=== PATIENT | male | born 1965 | race Hispanic/Latino ===

== ENCOUNTER 2024-11-09 16:58 | Emergency (ER) | payer BC, SELFPAY ==
[2024-11-09 17:31] VITALS: BP 156/92
--- NOTE | 2024-11-09 17:40 | ED.GENMED ---
ED Provider Triage
<Megan Delatorre PA-C - Last Filed: 11/09/24 17:48>
-
Patient seen by provider in Triage?: Seen in Triage
59 y/o M with h/o htn
has seen cards with Dr. Pool previously. About 2 weeks ago he started having some palpitations that felt like a mix between racing heart rate and irregular heartbeat. He called Dr. Pool's office and they recommend try to set him up with a Holter
monitor and then see him in a few weeks. He has not had that done yet. Today he felt suddenly lightheaded with dizziness, nausea, like he might pass out and felt racing heart rate so he had been told to come in if he had felt symptomatic. Patient
says he feels better now but it is not resolved. He only drinks 1 small cup of coffee in the morning.
A medical screening examination has been initiated by a qualified medical provider. Based on the assessment performed at this time, it has been determined that an emergent medical condition may exist and the patient has been informed that further
medical evaluation and possible additional diagnostic testing may be needed.
HPI: This is a medical evaluation conducted in person to initiate diagnostic evaluation and provide initial therapeutics. Please see further documentation by the treating clinician.
GENERAL: Alert , in no apparent distress
ENT: No visible abnormalities
LUNGS: No acute respiratory distress
cv: Irregularly irregular, not fast
NEUROLOGICAL: Alert and oriented
SKIN: Skin intact. No visible changes.
MUSCULOSKELETAL: Moving extremities normally
PSYCH: Normal and appropriate interaction.
Patient with palpitations and near syncope today. His EKG shows frequent PVC but a normal rate, I appreciate his stable vital signs.s will send screening labs
History of Present Illness
<Megan Delatorre PA-C - Last Filed: 11/09/24 17:48>
General
Chief Complaint: Cardiac Symptoms
Time Seen by Provider: 11/09/24 18:55
<Lela Oro PA-C - Last Filed: 11/10/24 06:40>
General
Source: patient and spouse
Exam Limitations: none
History of Present Illness
History of Present Illness:
59yoM with a history of hypertension and hyperlipidemia presenting with his for evaluation after an episode of dizziness today. Patient was working in his garage today around 1 PM when he started to experience left-sided chest pressure. He
then started to feel flushed and became lightheaded and felt like he was about to pass out. He did not lose consciousness. Symptoms lasted for several hours before resolving. He is currently asymptomatic. also reports that he has had daily
left-sided chest pain over the past several weeks. Pain is very random without any specific pattern. He denies any exertional or pleuritic symptoms. He is also having intermittent palpitations x several weeks and is scheduled to shredder picker a Holter
monitor in 4 days. His team leader/research psychologist is Dr. Pool.
Past History
<Megan Delatorre PA-C - Last Filed: 11/09/24 17:48>
Past History
ED Past Medical History: None
ED Past Surgical History: Other
Social History
Tobacco: Non-smoker
Alcohol: None
Drug: None
Personal:
Living: with family
Employment: Employed
Family History
Family History: Other
Phy Exam
<Lela Oro PA-C - Last Filed: 11/10/24 06:40>
General Physical Exam
General Presentation: well appearing and no apparent distress
General age: appears stated age
General Skin: warm and dry
General Habitus: normal
General Mental: alert
ENT Exam
ENT Exam: normocephalic
Cardiovascular Exam
Cardiovascular Exam: no murmur and occasionally irregular
Pulmonary Exam
Pulmonary Exam: lungs clear, no respiratory distress, no rales, no crackles, no rhonchi and no wheezing
Neurological Exam
Neurological Exam: alert
[place] Coma Scale
Eye Opening: Spontaneous
Verbal Response: Oriented
Motor Response: Obeys Commands
GCS Total Score: 15
Skin Exam
Skin Exam: normal color and warm/dry
Psychiatric Exam
Psychiatric Exam: normal mood/affect
Course
<Megan Delatorre PA-C - Last Filed: 11/09/24 17:48>
Orders/Labs/Results
Orders:
Orders
11/09/24 16:59
Electrocardiogram (*1) Urgent
Reason for Study: Chest Pain
EKG- Treatment ONCE
11/09/24 17:48
CMP [Comprehensive Metabolic Panel] Urgent
Complete Blood Count/With Diff Urgent
Magnesium Urgent
Comment: ADD ON
TSH Reflex To Free T4 Urgent
Troponin I Urgent
11/09/24 19:10
Add On- LAB Urgent
Tests Added?: magnesium
EKG- Treatment ONCE
11/09/24 19:11
0.9% Sodium Chloride 500 ml [Nss] 500 ml IV BOLUS
11/09/24 20:00
Electrocardiogram (*1) Urgent
Reason for Study: Chest Pain
11/09/24 20:20
Troponin I Urgent
Abnormal Lab Results
11/09/24
17:48
Glucose 117 H mg/dl
(70-99)
11/09/24 17:48
11/09/24 17:48
Vital Signs
Initial and Last Documented VS:
Initial Vital Signs
Temp Pulse Resp BP Pulse Ox
98.3 F 69 18 156/92 98
11/09/24 17:31 11/09/24 17:31 11/09/24 17:31 11/09/24 17:31 11/09/24 17:31
Last Documented Vital Signs
Temp Pulse Resp BP Pulse Ox
98.3 F 53 18 149/90 100
11/09/24 19:26 11/09/24 21:14 11/09/24 21:14 11/09/24 21:14 11/09/24 21:14
<Lela Oro PA-C - Last Filed: 11/10/24 06:40>
Orders/Labs/Results
Orders:
Orders
11/09/24 16:59
Electrocardiogram (*1) Urgent
Reason for Study: Chest Pain
EKG- Treatment ONCE
11/09/24 17:48
CMP [Comprehensive Metabolic Panel] Urgent
Complete Blood Count/With Diff Urgent
Magnesium Urgent
Comment: ADD ON
TSH Reflex To Free T4 Urgent
Troponin I Urgent
11/09/24 19:10
Add On- LAB Urgent
Tests Added?: magnesium
EKG- Treatment ONCE
11/09/24 19:11
0.9% Sodium Chloride 500 ml [Nss] 500 ml IV BOLUS
11/09/24 20:00
Electrocardiogram (*1) Urgent
Reason for Study: Chest Pain
11/09/24 20:20
Troponin I Urgent
Abnormal Lab Results
11/09/24
17:48
Glucose 117 H mg/dl
(70-99)
11/09/24 17:48
11/09/24 17:48
Vital Signs
Initial and Last Documented VS:
Initial Vital Signs
Temp Pulse Resp BP Pulse Ox
98.3 F 69 18 156/92 98
11/09/24 17:31 11/09/24 17:31 11/09/24 17:31 11/09/24 17:31 11/09/24 17:31
Last Documented Vital Signs
Temp Pulse Resp BP Pulse Ox
98.3 F 53 18 149/90 100
11/09/24 19:26 11/09/24 21:14 11/09/24 21:14 11/09/24 21:14 11/09/24 21:14
<Lela Oro PA-C - Last Filed: 11/10/24 06:40>
MDM/Problems Addressed
Differential Diagnosis Includes:
59yoM here after a near syncopal episode earlier today. He has had palpitations x several weeks but today was the first time he has become dizzy. Also having intermittent chest pains x several weeks. Currently asymptomatic. Holter monitor scheduled
for pickup in 4 days. VSS. He is well appearing in no distress. Heart rate irregular on exam. Differential diagnosis includes but is not limited to: arrhythmia, ACS, vasovagal episode, dehydration
Initial ED plan: Labs and EKG obtained in triage. EKG shows NSR with frequent PVCs. Labs unremarkable including normal electrolytes, TSH, and troponin. Will check magnesium and delta troponin/EKG. IV fluid bolus.
<Lela Oro PA-C - Last Filed: 11/10/24 06:40>
*EKG
Interpreted by ED Provider?: Yes
EKG Intrepretation Date: 11/09/24
Heart Rate: 75
Rate: normal
Rhythm: sinus and PVC's
[place]: left axis deviation
Interval: normal interval
QRS Pattern: right bundle branch block (incomplete)
Ischemia: no ischemia
*Critical Care Note
Total Time (30-74mins, 75-104mins- exclusive of procedures): Not Applicable
<Lela Oro PA-C - Last Filed: 11/10/24 06:40>
Update Note
Update Note:
Repeat EKG again shows frequent PVCs and troponin remains normal. Magnesium WNL. Heart rate in the 50-60 range throughout ED stay consistent with his prior ED visits. BP stable. He remains asymptomatic on reassessment. No indication for
hospitalization at this time. He is scheduled to shredder picker a Holter monitor in 4 days. Plan for f/u with chest pain hotline. Strict ED return precautions discussed including any recurrent dizziness or syncope. Patient and in agreement with plan
and patient discharged in stable condition.
ED Attending Note
<Megan Delatorre PA-C - Last Filed: 11/09/24 17:48>
-
Portions of this chart may have been created with voice recognition software.� Occasional wrong word or��sound alike� substitutions may have occurred due to the inherent limitations of voice recognition software.
Discharge Plan
Departure
Patient Disposition: Home (Routine Discharge)
Date of Disposition: 11/09/24
Time of Disposition: 21:09
Patient with high blood pressure during this ER visit?: Yes
Discharge Problem:
Chest pain, Near syncope, Frequent PVCs
Instructions: Ventricular premature beats, Chest Pain DCA Follow Up
Prescriptions:
No Action
metoprolol tartrate 25 mg Tablet
12.5 mg PO BID
meclizine 25 mg tablet
25 mg PO QID PRN (Reason: dizziness) Qty: 30 0RF
prednisone 10 mg Tablet
See Rx Instructions .ROUTE .COMPLEX Qty: 30 0RF
Rx Instructions:
Take By Mouth:
40 mg daily x3 days, 30 mg daily x3 days,
20 mg daily x3 days, 10 mg daily x3 days.
Referrals:
Jasson Rowley DO [Family Provider] -
Activity Restrictions/Additional Instructions:
Please call your team leader/research psychologist tomorrow for close follow-up. Return to the ER immediately with any worsening symptoms, dizziness, or passing out.
Interventions
Interventions:
*Risk Screen - Suicide Last Done: 11/09/24 19:27
*General Assessment Last Done: 11/09/24 19:27
*Neglect/Abuse Screening Last Done: 11/09/24 19:27
*ED COVID-19 Vaccine History Last Done: 11/09/24 17:31
*Nursing Disposition Last Done: 11/09/24 21:18
ED- Cardiac Assessment Last Done: 11/09/24 19:20
ED- Pulmonary Assessment Last Done: 11/09/24 19:20
Discharge Date and Time
Discharge Date/Time: 11/09/24 21:19
Print Language: MAURITANIAN
[2024-11-09 18:08] LABS: % Basophils 0.5 % (0-2); % Eosinophils 1.6 % (0-6); % Immature Granulocytes 0.2 % (0-0.5); % Lymphocytes 26.8 % (20.5-51.1); % Monocytes 7.9 % (1.7-9.3); Absolute Eosinophils 0.1 10^3/uL (0-0.7); Absolute Lymphocytes 1.5 10^3/uL (1.2-3.4); Absolute Monocytes 0.5 10^3/uL (0.1-0.6); Absolute Neutrophils 3.6 10^3/uL (1.4-6.5); Hematocrit 47.1 % (39.0-52.0); Hemoglobin 16.5 g/dL (13.0-18.0); Mean Corpuscular Hgb 30.4 pg (27.0-31.0); Mean Corpuscular Volume 86.9 fL (80.0-94.0); Mean Platelet Volume 9.7 fL (7.4-10.4); Nucleated Red Blood Cells % 0 % (-); Platelet Count 219 10^3/uL (130-400); Red Blood Cell Count 5.42 10^6/uL (4.70-6.10); Red Cell Dist. Width 12.8 % (11.5-14.5); White Blood Cell Count 5.7 10^3/uL (4.8-10.8)
[2024-11-09 18:25] LABS: ALT (SGPT) 30 U/L (0-50); AST (SGOT) 30 U/L (17-59); Albumin 4.8 g/dl (3.5-5.0); Alkaline Phosphatase 80 U/L (38-126); Blood Urea Nitrogen 14 mg/dl (9-20); Calcium 9.9 mg/dl (8.4-10.2); Carbon Dioxide 25 mmol/L (22-30); Chloride 105 mmol/L (98-107); Glucose 117 mg/dl (70-99); Potassium 3.8 mmol/L (3.5-5.1); Sodium 139 mmol/L (135-145); Total Bilirubin 0.8 mg/dl (0.2-1.3); Total Protein 7.2 g/dl (6.3-8.2); eGFR > 60.00
[2024-11-09 18:28] LABS: Troponin I < 0.012 ng/ml
[2024-11-09 18:56] LABS: TSH Reflex To Free T4 2.01 uIU/ml (0.47-4.68)
[2024-11-09 19:25] VITALS: BMI 28.0
[2024-11-09 19:26] VITALS: BP 132/79
[2024-11-09] MEDS: NSS 500 IV (19:35)
[2024-11-09 19:45] LABS: Magnesium 1.9 mg/dl (1.6-2.3)
[2024-11-09 20:57] LABS: Troponin I < 0.012 ng/ml
[2024-11-09 21:14] VITALS: BP 149/90
== END 2024-11-09 21:19 | disposition home or self-care (01) ==
LOC: EMR 16:58
PROVIDERS: Physician Assistant; Student in an Organized Health Care Education/Training Program; EMERGENCY PHYSICIAN Student in an Organized Health Care Education/Training Program; FAMILY PHYSICIAN Internal Medicine; REFERRING PHYSICIAN Internal Medicine Cardiovascular Disease
DX: R07.89 Other chest pain (principal); R55 Syncope and collapse; I49.3 Ventricular premature depolarization; I10 Essential (primary) hypertension; E78.5 Hyperlipidemia, unspecified
CPT/HCPCS: 99284; 96360; 80053; 83735; 84443; 84484; 85025; 93005

== ENCOUNTER → 2025-01-04 08:15 | Outpatient (REF) | payer SELFPAY | LOC: HWRAD 08:15 | PROVIDERS: ATTENDING PHYSICIAN Internal Medicine Cardiovascular Disease; FAMILY PHYSICIAN Internal Medicine | DX: E78.2 Mixed hyperlipidemia (principal) | CPT/HCPCS: 75571 ==